=== PATIENT | male | born 1945 | race Caucasian/White ===

== ENCOUNTER 2022-08-12 20:10 | Emergency (ER) | payer MEDICARE, OTHER, SELFPAY ==
[2022-08-12 20:09] VITALS: BP 159/89; PULSE 109; RESP 18; TEMP 36.6; O2SAT 98
--- NOTE | 2022-08-12 20:10 | ED.GENADULT ---
HPI - General Adult General Chief complaint: Unspecified Stated complaint: slurred speech History of Present Illness HPI narrative: Patient is a 76-year-old gentleman who presents emergency department with chief complaint of altered mental status. Per EMS the patient was at a local dog park and was leaning on the fence and starting to fall down. EMS reported that he was able to answer orientation questions but was somewhat confused whenever they initially evaluated the patient in the field. The patient initially was going to refuse treatment but fire was able to convince the patient to come to the emergency department for medical screening exam. On arrival to the emergency department the patient is able to provide all history and is able to provide past medical history as well. The patient states currently he feels better since he is arrived to the emergency department. Related Data Allergies Allergy/AdvReac Type Severity Reaction Status Date / Time No Known Allergies Allergy Verified 08/12/22 20:16 Review of Systems Review of Systems: A 10 system review of systems was completed on the patient and is negative except for what is stated in the HPI. Nursing and ancillary documentation was reviewed. PMFSH Comments Past medical history significant for hypertension, diabetes, congestive heart failure Exam Narrative: GENERAL: Well-appearing, well-nourished, and in no acute distress. HEAD: Normocephalic, atraumatic. EYES: PERRLA and EOMI. ENT: Nares clear, no rhinorrhea or epistaxis. Mucous membranes moist. NECK: Supple. CHEST: Clear to auscultation. No respiratory distress. HEART: Regular rate and rhythm. No murmur heard. Normal peripheral pulses. ABDOMEN: Soft, nontender, nondistended, normal active bowel sounds. EXTREMITIES: Normal range of motion. No edema. SKIN: Warm, dry, no rash. NEURO: No focal deficits. Alert and oriented x3. PSYCH: Normal mood and affect. Course Course Emergency Course: Prior to undergoing testing patient is alert oriented and the patient decided that he did not want to stay in the emergency department and have a full evaluation. Patient understood the risk of leaving AGAINST MEDICAL ADVICE and was lab signed out AGAINST MEDICAL ADVICE. Vital Signs Vital signs: Vital Signs Temperature 36.6 C 08/12/22 20:09 Pulse Rate 109 H 08/12/22 20:09 Respiratory Rate 18 08/12/22 20:09 Blood Pressure 159/89 H 08/12/22 20:09 Pulse Oximetry 98 08/12/22 20:09 Oxygen Delivery Room Air 08/12/22 20:09 Temperature 36.6 C 08/12/22 20:09 Pulse Rate 102 H 08/12/22 20:53 Respiratory Rate 16 08/12/22 20:53 Blood Pressure 143/79 H 08/12/22 20:53 Pulse Oximetry 97 08/12/22 20:53 Oxygen Delivery Room Air 08/12/22 20:09 Medical Decision Making Vital Signs Vital Signs: Vital Signs Temperature 36.6 C 08/12/22 20:09 Pulse Rate 109 H 08/12/22 20:09 Respiratory Rate 18 08/12/22 20:09 Blood Pressure 159/89 H 08/12/22 20:09 Pulse Oximetry 98 08/12/22 20:09 Oxygen Delivery Room Air 08/12/22 20:09 Temperature 36.6 C 08/12/22 20:09 Pulse Rate 102 H 08/12/22 20:53 Respiratory Rate 16 08/12/22 20:53 Blood Pressure 143/79 H 08/12/22 20:53 Pulse Oximetry 97 08/12/22 20:53 Oxygen Delivery Room Air 08/12/22 20:09 Discharge Plan Discharge Clinical Impression: Generalized weakness Patient Disposition: Left Against Medical Advice Condition: Stable Follow-up/Referrals: UNKNOWN,DOCTOR [Non-Staff] - Time of Disposition: 21:00
--- NOTE | 2022-08-12 20:15 | ECG_ITS ---
Measurements Intervals [place] Rate: 105 P: LA: 0 QRS: 31 QRSD: 139 T: -7 QT: 362 QTc: 480 Interpretive Statements SINUS OR ECTOPIC ATRIAL TACHYCARDIA RIGHT BUNDLE BRANCH BLOCK ABNORMAL ECG NO PREVIOUS ECG AVAILABLE FOR COMPARISON Electronically Signed On 08-12-2022 21:39:20 CDT by Edil Bautista D.O.
[2022-08-12 20:53] VITALS: BP 143/79; PULSE 102; RESP 16; O2SAT 97
== END 2022-08-12 20:55 | disposition left against medical advice (07) ==
PROVIDERS: Emergency Provider Emergency Medicine
DX: R53.1 Weakness (principal); E11.9 Type 2 diabetes mellitus without complications; I11.0 Hypertensive heart disease with heart failure; I50.9 Heart failure, unspecified; R00.0 Tachycardia, unspecified; I45.10 Unspecified right bundle-branch block
CPT/HCPCS: 93005; 99283